=== PATIENT | male | born 1980 | race Caucasian/White ===

== ENCOUNTER 2020-11-19 05:15 | Inpatient (IN) | payer OTHER ==
[2020-11-19] VITALS (10 sets, daily range): BP systolic 95–124; BP diastolic 57–76
[~2020-11-19] VITALS: Ht 170.2 cm; Wt 75.8 kg
--- NOTE | 2020-11-19 05:30 | NUR ---
Patient admitted to room 116 via gurney from [facility] accompanied by power crane operator. on arrival patient is alert/oriented x4 and denies pain. Patient states he had an allergic/anaphylactic shock to either something he ate or medication given at [facility]. Patient does have trace swelling of lips, tongue, and laryngeal area but patient states it is improved and he is able to swallow. Voice is hoarse but not garbled. Patient oriented to ICU routine, Nursing call light, TV/Bed control, diet (NPO), activity (up with assist), side rail policy, POC, and importance of notifying RN for worsening edema. Patient verbalized understanding of above. See admission information/assessment to follow.
--- NOTE | 2020-11-19 05:40 | NUR ---
Called Dr Dumont, notified of transfer/admission--admit order received. See orders.
[2020-11-19] MEDS ORDERED: FAMOTIDINE 20 MG/2 ML VIAL IVP SCH (07:00)
[2020-11-19] MEDS ORDERED: diphenhydrAMINE 50 MG/ML VIAL IVP SCH (07:00)
[2020-11-19] MEDS ORDERED: OMEP20TA63 PO (10:08)
--- NOTE | 2020-11-19 10:41 | CONS ---
DATE OF CONSULTATION: PULMONARY CONSULTATION ATTENDING PHYSICIAN: Dr. Dumont. REASON FOR CONSULTATION: Anaphylactic reaction. HISTORY OF PRESENT ILLNESS: The patient is a 40-year-old pleasant male who has a history of idiopathic anaphylaxis. The patient has episodes of anaphylaxis triggered by unknown agents at least 8-10 times in the past. He never had been on the ventilator. He was recently diagnosed with epididymitis and was sent home on Percocet and Levaquin. The patient states around midnight, he felt like his throat was getting swollen. He had facial swelling as well. The patient had tachycardia. He was given EpiPen by his . The patient states he was seen in the ER, he started to feel better. The patient spent overnight in the ICU. There has been no respiratory issues. He is breathing fine. There is no throat swelling, no facial swelling. He has received dexamethasone. At present, I have been asked to see him for further evaluation. He denies any chest pain, shortness of breath, cough, fever, or chills. PAST MEDICAL HISTORY: History of GERD, history of dysphagia and history of idiopathic anaphylaxis of unclear etiology. He keeps EpiPen with him. PAST SURGICAL HISTORY: No recent surgeries. ALLERGIES: LEVAQUIN. MEDICATIONS: That were given in the ER were reviewed. SOCIAL HISTORY: Nonsmoker. PHYSICAL EXAMINATION: VITAL SIGNS: Reviewed. Afebrile, blood pressure is stable. NECK: Supple. LUNGS: Clear. CARDIOVASCULAR: With a regular rate. ABDOMEN: Soft. EXTREMITIES: With no pitting edema. LABORATORY DATA: From [facility] have not been done yet. IMPRESSION: The patient with history of idiopathic anaphylaxis of unclear etiology and unclear triggers. He had another episode after he received Levaquin and Percocet for epididymitis. The patient did respond to EpiPen. He received steroids as well. He is now clinically back to his baseline. He has no difficulty in breathing. RECOMMENDATIONS: 1. Discussed with Dr. Dumont. At this time, he is stable to be discharged home. 2. He will follow up with his [employer] as an outpatient. 3. Avoid Levaquin in future and send him on antibiotic that he has tolerated better. Discussed with the patient's . LILIA MEADE MD DR: KULDIP/ely JOB#: [id number] / [id number]
--- NOTE | 2020-11-19 11:50 | NUR ---
Discharge: Teaching verbal and written. Reviewed medications, follow-up, anaphylactic reaction, ect. Patient verbalized understandings. at bedside. All belongings with patient. IV removed without complications, catheter tip in tact, dressing applied. Patient ambulated off of unit accompanied by and nurse
--- NOTE | 2020-11-19 12:05 | SSS ---
ADMIT DATE: 11/19/2020 HISTORY OF PRESENT ILLNESS: The patient is a 40-year-old male who presented to the Emergency Department with anaphylaxis. The patient has a condition called idiopathic anaphylaxis at baseline. He was seen in the Emergency Room earlier in the evening and was diagnosed with epididymitis, given Percocet at around 10:00 and was started on Levaquin around midnight. He made it home around 12:30. He ate before he went to sleep and at around 03:17, he developed marked tachycardia with a heart rate up to 117. He also developed swelling of his tongue and face and neck and he became itchy between fingers and toes. He took 2 EpiPens and was called in EMS and was taken to the Emergency Room where he was evaluated and was treated with dexamethasone, Benadryl as well as Pepcid and was transferred to the ICU of [facility] for further evaluation and treatment, continued him on Solu-Medrol, Benadryl and Pepcid. History of present illness stated that this episode started about on 01/18/2020 and this is probably 10th episode. All his episodes are associated with exertion before. He has been treated with budesonide for this syndrome and follows with an roll cleaner at [facility]. PAST MEDICAL HISTORY: Significant for dysphagia for which he takes 2 mL of budesonide mixed in honey twice a day. He is also not known to have gastroesophageal reflux disease. ALLERGIES: He has no known drug allergies. MEDICATIONS: He is actually at home on budesonide, Prilosec, and Singulair. FAMILY HISTORY: He has one brother who is younger and healthy. Sister also younger and healthy. His father is alive at age of 63 and has hypertension. Mother is alive at age of 62 and has hypertension, congestive heart failure, and hyperlipidemia. Apparently, he has also AICD. SOCIAL HISTORY: He is , has 2 daughters and 1 son. He quit smoking in 2004. He drinks alcohol rarely. Does not use any drugs. He is a soldier. REVIEW OF SYSTEMS: As per history of present illness. PHYSICAL EXAMINATION AT [facility] GENERAL: When he arrived in the Emergency Room at [facility], he looked well and was clearly in no apparent respiratory distress. No pallor, jaundice, cyanosis or thyromegaly. No jugular venous distension. No lower limb edema. VITAL SIGNS: His heart rate was 86, blood pressure was 123/80, temperature 97.4, respiratory rate was 20, and oxygen saturation was 97%. HEAD, EYES, EARS, NOSE AND THROAT: Showed normocephalic, atraumatic. NECK: Supple. HEART: Normal first and second heart sounds. No gallop or murmur. CHEST: Clear to auscultation. No crepitation or rhonchi. ABDOMEN: Scaphoid, soft, nontender. NEUROLOGIC: He was awake, alert, oriented x 3, normal motor and sensory function, no focal deficit. PSYCHOLOGICAL: The affect, judgment and mood were normal. PHYSICAL EXAMINATION AT [facility]: GENERAL: While there, he received dexamethasone 10 mg IV together with diphenhydramine 50 mg IV once, Pepcid 20 mg once and was transferred to [facility] ICU as he had injected himself with epinephrine twice and there was some concern for airway compromise according to ER physician and therefore, he was brought to the Emergency Room of [facility]. When I saw him, we have continued him on steroids, Pepcid and Benadryl; although, he refused to take his Benadryl when he arrived here and by the time I saw him, he was fine. He was resting slightly propped up in bed, in no apparent respiratory distress. There was no pallor, jaundice, cyanosis or thyromegaly. No jugular venous distension. No limb edema. VITAL SIGNS: His heart rate was 70, blood pressure was 95/58, temperature was 98, respiratory rate was 18 and oxygen saturation was 97%. HEAD, EYES, EARS, NOSE AND THROAT: Showed normocephalic, atraumatic. NECK: Supple. HEART: Showed normal first and second heart sounds. No gallop, rub, or murmur. CHEST: Clear to auscultation. No crepitations or rhonchi. ABDOMEN: Distended, soft, nontender. NEUROLOGICAL: He was awake, alert, responding appropriately. All cranial nerves intact. EXTREMITIES: He moves extremities without difficulty, ambulates without assistance or assistive devices. PLAN: The patient was discharged home to continue on all his home medications. I spoke with Dr. Auguste and we will ask him to see what antibiotics he has taken before that were safe for him and meanwhile, he should continue with all his home medications that included budesonide, Prilosec, and Singulair. FINAL DISCHARGE DIAGNOSIS: Idiopathic anaphylactic syndrome. I also asked him to contact his roll cleaner at [facility] and make an appointment; however, if his symptoms recur, he should come to the nearest Emergency Room immediately. DEBORAH ROGERS MD DR: IRIS/ely JOB#: [id number] / [id number]
[2020-11-20] MEDS ORDERED: DEXAMETHASONE SOD PHOS 4 MG/ML VIAL IVP SCH (05:00)
== END 2020-11-19 11:35 | disposition home or self-care (01) | DRG 916 ==
LOC: 1 WEST ICU 05:15
PROVIDERS: ADMIT Internal Medicine; ATTEND Internal Medicine
DX: T78.2XXA Anaphylactic shock, unspecified, initial encounter (principal); Z82.49 Family history of ischemic heart disease and other diseases of the circulatory system; Z87.891 Personal history of nicotine dependence; K21.9 Gastro-esophageal reflux disease without esophagitis; X58.XXXA Exposure to other specified factors, initial encounter; Y93.89 Activity, other specified; Y92.89 Other specified places as the place of occurrence of the external cause; Y99.8 Other external cause status
CPT/HCPCS: G0378